=== PATIENT | female | born 1995 | race Caucasian/White ===

== ENCOUNTER 2021-06-12 20:19 | Emergency (ER) | payer SELFPAY ==
[~2021-06-12] VITALS: Ht 157.5 cm; Wt 50.0 kg
[2021-06-13 00:19] VITALS: BP 118/84
== END 2021-06-13 00:20 | disposition home or self-care (01) ==
LOC: ER 20:19
DX: M79.18 Myalgia, other site (principal); R09.89 Other specified symptoms and signs involving the circulatory and respiratory systems; E05.90 Thyrotoxicosis, unspecified without thyrotoxic crisis or storm; Z59.0 Homelessness; Z91.018 Allergy to other foods
CPT/HCPCS: 99283